=== PATIENT | female | born 1985 | race American Indian/Alaskan Native ===

== ENCOUNTER 2022-03-07 12:19 | Emergency (ER) | payer SELFPAY ==
[2022-03-07 13:25] VITALS: BP 121/58
[2022-03-07] MEDS ORDERED: LIDOCAINE-MPF (1%) 10 MG/1 ML VIAL 5 ML INFILTRATI ONE (14:34)
--- NOTE | 2022-03-07 14:41 | Emergency Department Report ---
ED Female HPI - General Chief complaint: Urogenital-Female Stated complaint: POSS STD Time Seen by Provider: 03/07/22 14:34 Source: patient Mode of arrival: Ambulatory Limitations: No Limitations - History of Present Illness Initial comments: 36-year-old black female with no past medical history presents to the emergency department for evaluation of vaginal discharge possible STD. She states that she met a sejal 2 to 3 weeks ago that she spent the night with then developed vaginal discharge a few days later. She states that vaginal discharge has been getting increasingly worse along with itching and 1 week ago she developed intermittent abdominal pain. She denies fever and dysuria. MD Complaint: vaginal discharge, possible STD -: Gradual, week(s) (2-3) Location: suprapubic Severity: mild Quality: aching Consistency: intermittent Are you Now?: No Last Menstrual Period: 03/07/22 EDC: 12/12/22 Associated Symptoms: vaginal discharge, abdominal pain. denies: vaginal bleeding, nausea/vomiting, fever/chills, headaches, loss of appetite, dysuria, hematuria, rash, seizure, shortness of breath, syncope, weakness - Related Data Sexually active: Yes Previous Rx's Medication Instructions Recorded Last Taken Type DOXYCYCLINE Hyclate [Vibramycin 100 mg PO Q12HR #14 capsule 03/07/22 Unknown Rx CAP] metroNIDAZOLE [Flagyl] 500 mg PO Q12HR #14 tab 03/07/22 Unknown Rx Allergies Allergy/AdvReac Type Severity Reaction Status Date / Time No Known Allergies Allergy Unverified 03/07/22 13:20 ED Review of Systems ROS: Stated complaint: POSS STD Other details as noted in HPI Comment: All other systems reviewed and negative Constitutional: denies: chills, fever Respiratory: denies: shortness of breath Cardiovascular: denies: chest pain Gastrointestinal: abdominal pain. denies: nausea, vomiting Genitourinary: discharge. denies: dysuria, frequency, hematuria, dyspareunia Musculoskeletal: denies: back pain Neurological: denies: headache, weakness Psychiatric: denies: anxiety, depression ED Past Medical Hx - Medications Home Medications: Home Medications Medication Instructions Recorded Confirmed Last Taken Type DOXYCYCLINE Hyclate [Vibramycin 100 mg PO Q12HR #14 capsule 03/07/22 Unknown Rx CAP] metroNIDAZOLE [Flagyl] 500 mg PO Q12HR #14 tab 03/07/22 Unknown Rx ED Physical Exam - General Limitations: No Limitations General appearance: alert, in no apparent distress - Head Head exam: Present: atraumatic, normocephalic - Eye Eye exam: Present: normal appearance. Absent: conjunctival injection - Neck Neck exam: Present: normal inspection - Respiratory Respiratory exam: Present: normal lung sounds bilaterally. Absent: respiratory distress - Cardiovascular Cardiovascular Exam: Present: regular rate, normal heart sounds - GI/Abdominal GI/Abdominal exam: Present: soft, normal bowel sounds. Absent: distended, tenderness, guarding, rebound, rigid - External exam: Present: other (Patient refused vaginal exam stating that she did not want to be examined or tested but would only like to be treated and discharged home.) - Extremities Exam Extremities exam: Present: normal inspection - Back Exam Back exam: Present: normal inspection - Neurological Exam Neurological exam: Present: alert, oriented X3, normal gait - Psychiatric Psychiatric exam: Present: normal affect, normal mood - Skin Skin exam: Present: warm, dry, intact, normal color ED Course Vital Signs 03/07/22 13:20 Temperature 98.4 F Pulse Rate 75 Respiratory 18 Rate Blood Pressure 121/58 [Right] O2 Sat by Pulse 97 Oximetry ED Medical Decision Making - Medical Decision Making 36-year-old black female with no past medical history presents to the emergency department for evaluation of vaginal discharge possible STD. She states that she met a sejal 2 to 3 weeks ago that she spent the night with then developed vaginal discharge a few days later. She states that vaginal discharge has been getting increasingly worse along with itching and 1 week ago she developed intermittent abdominal pain. She denies fever and dysuria Patient refused vaginal exam and stated that she did not want to do any self swab either because she did not want to be tested just to be given treatment for gonorrhea, chlamydia, and trichomonas. Patient given Rocephin 500 mg IM x1 in emergency department and discharged home with prescription for doxycycline 100 mg twice daily along with Flagyl 500 mg twice daily. She was advised to take medications as prescribed, practice safe sex, and follow-up with S[facility] or primary care provider if no improvement or worsening symptoms. She verbalized understanding of and agreement with plan of care. Critical care attestation.: If time is entered above; I have spent that time in minutes in the direct care of this critically ill patient, excluding procedure time. ED Disposition Clinical Impression: Possible exposure to STD, Vaginal discharge Disposition: 01 HOME / SELF CARE / HOMELESS Is pt being admited?: No Does the pt Need Aspirin: No Condition: Stable Instructions: Vaginitis, [id number], Safe Sex Additional Instructions: Take medications as prescribed. Follow-up with primary care provider for further testing or worsening symptoms. Return to the emergency department as needed Prescriptions: metroNIDAZOLE [Flagyl] 500 mg PO Q12HR #14 tab DOXYCYCLINE Hyclate [Vibramycin CAP] 100 mg PO Q12HR #14 capsule Referrals: [facility] [Outside] - 3-5 Days SHAGGY OLMOS MD [Referring] - 3-5 Days Time of Disposition: 14:41
== END 2022-03-07 16:23 | disposition home or self-care (01) ==
LOC: ED 12:19
DX: N89.8 Other specified noninflammatory disorders of vagina (principal); Z20.2 Contact with and (suspected) exposure to infections with a predominantly sexual mode of transmission
CPT/HCPCS: 96372; 99282; J0696; J3490